=== PATIENT | female | born 1990 | race American Indian/Alaskan Native ===

== ENCOUNTER 2020-03-01 11:14 | Emergency (ER) | payer SELFPAY ==
[2020-03-01] MEDS ORDERED: ONDANSETRON 4 MG/2 ML INJ IV ONE (12:46)
[2020-03-01] MEDS ORDERED: BUTORPHANOL 2 MG/1 ML INJ IV ONE (13:00)
[2020-03-01 13:24] LABS: Basophils % (Auto) 0.1 % (0.0-1.8); Eosinophils # (Auto) 0.1 K/mm3 (0.0-0.4); Eosinophils % (Auto) 0.9 % (0.0-4.3); Hematocrit 38.9 % (30.3-42.9); Hemoglobin 13.8 gm/dl (10.1-14.3); Lymphocytes # (Auto) 1.9 K/mm3 (1.2-5.4); Lymphocytes % (Auto) 18.9 % (13.4-35.0); Mean Corpuscular HGB Conc 35 % (30-34); Mean Corpuscular Volume 89 fl (79-97); Monocytes # (Auto) 1.2 K/mm3 (0.0-0.8); Monocytes % (Auto) 12.1 % (0.0-7.3); Platelet Count 208 K/mm3 (140-440); Red Blood Count 4.35 M/mm3 (3.65-5.03); Red Cell Distribution Width 12.8 % (13.2-15.2)
[2020-03-01 13:34] LABS: Partial Thromboplastin Time 30.3 Sec. (24.2-36.6)
[2020-03-01 13:55] LABS: Alanine Aminotransferase 11 units/L (7-56); Albumin 3.8 g/dL (3.9-5); BUN/Creatinine Ratio 12; Blood Urea Nitrogen 6 mg/dL (7-17); Calcium 9.2 mg/dL (8.4-10.2); Hemolysis Index 8
--- NOTE | 2020-03-01 15:16 | Emergency Department Report ---
ED General Adult HPI - General Chief complaint: Abdominal Pain Stated complaint: ABD PAIN Time Seen by Provider: 03/01/20 11:52 Source: EMS Mode of arrival: Wheelchair Limitations: No Limitations - History of Present Illness Initial comments: The patient presents to the emergency department with a chief complaint of pelvic pain and cramping. Patient states she is approximately 4 months and began to have abdominal pain and cramping this morning. She states the pain feels like labor pains. The patient is a G4, P3. Patient has any vaginal discharge but does endorse some spotting. -: Sudden Location: pelvis Radiation: non-radiation Severity scale (0 -10): 10 Quality: sharp, other (Sharp and crampy) Consistency: constant Improves with: none Worsens with: none Associated Symptoms: denies other symptoms Treatments Prior to Arrival: none - Related Data Previous Rx's Medication Instructions Recorded Last Taken Type Metoclopramide [Reglan] 10 mg PO Q8HR PRN #12 tab 12/05/19 Unknown Rx Acetaminophen/Codeine [Tylenol 1 tab PO Q6H PRN #15 tab 03/01/20 Unknown Rx /Codeine # 3 tab] Allergies Allergy/AdvReac Type Severity Reaction Status Date / Time strawberry Allergy Rash Verified 12/05/19 09:51 ED Review of Systems ROS: Stated complaint: ABD PAIN Other details as noted in HPI Comment: All other systems reviewed and negative Constitutional: denies: chills, fever Eyes: denies: eye pain, eye discharge, vision change ENT: denies: ear pain, throat pain Respiratory: denies: cough, shortness of breath, wheezing Cardiovascular: denies: chest pain, palpitations Endocrine: no symptoms reported Gastrointestinal: abdominal pain. denies: nausea, diarrhea Genitourinary: denies: urgency, dysuria, discharge Musculoskeletal: denies: back pain, joint swelling, arthralgia Skin: denies: rash, lesions Neurological: denies: headache, weakness, paresthesias Psychiatric: denies: anxiety, depression Hematological/Lymphatic: denies: easy bleeding, easy bruising ED Past Medical Hx - Past Medical History Previous Medical History?: Yes Hx Hypertension: Yes - Surgical History Past Surgical History?: No - Social History Smoking Status: Current Every Day Smoker Substance Use Type: None - Medications Home Medications: Home Medications Medication Instructions Recorded Confirmed Last Taken Type Metoclopramide [Reglan] 10 mg PO Q8HR PRN #12 tab 12/05/19 Unknown Rx Acetaminophen/Codeine [Tylenol 1 tab PO Q6H PRN #15 tab 03/01/20 Unknown Rx /Codeine # 3 tab] ED Physical Exam - General Limitations: No Limitations General appearance: alert, in no apparent distress - Head Head exam: Present: atraumatic, normocephalic - Eye Eye exam: Present: normal appearance, PERRL, EOMI - ENT ENT exam: Present: mucous membranes moist - Neck Neck exam: Present: normal inspection - Respiratory Respiratory exam: Present: normal lung sounds bilaterally. Absent: respiratory distress - Cardiovascular Cardiovascular Exam: Present: regular rate, normal rhythm. Absent: systolic murmur, diastolic murmur, rubs, gallop - GI/Abdominal GI/Abdominal exam: Present: soft, normal bowel sounds. Absent: distended, tenderness - External exam: Present: normal external exam Speculum exam: Present: normal speculum exam, other (os closed) Bi-manual exam: Present: normal bi-manual exam - Extremities Exam Extremities exam: Present: normal inspection - Back Exam Back exam: Present: normal inspection - Neurological Exam Neurological exam: Present: alert, oriented X3, CN II-XII intact. Absent: motor sensory deficit - Psychiatric Psychiatric exam: Present: normal affect, normal mood - Skin Skin exam: Present: warm, dry, intact, normal color. Absent: rash ED Course Vital Signs 03/01/20 03/01/20 11:35 14:30 Temperature 97.7 F Pulse Rate 90 Respiratory 18 17 Rate Blood Pressure 120/69 O2 Sat by Pulse 97 100 Oximetry ED Medical Decision Making - Lab Data Result diagrams: 03/01/20 12:54 03/01/20 12:54 Lab Results 03/01/20 03/01/20 03/01/20 Range/Units 12:54 12:54 12:54 WBC 10.1 (4.5-11.0) K/mm3 RBC 4.35 (3.65-5.03) M/mm3 Hgb 13.8 (10.1-14.3) gm/dl Hct 38.9 (30.3-42.9) % MCV 89 (79-97) fl MCH 32 (28-32) pg MCHC 35 H (30-34) % RDW 12.8 L (13.2-15.2) % Plt Count 208 (140-440) K/mm3 Lymph % (Auto) 18.9 (13.4-35.0) % [place] % (Auto) 12.1 H (0.0-7.3) % Eos % (Auto) 0.9 (0.0-4.3) % Baso % (Auto) 0.1 (0.0-1.8) % Lymph # (Auto) 1.9 (1.2-5.4) K/mm3 [place] # (Auto) 1.2 H (0.0-0.8) K/mm3 Eos # (Auto) 0.1 (0.0-0.4) K/mm3 Baso # (Auto) 0.0 (0.0-0.1) K/mm3 Seg Neutrophils % 68.0 (40.0-70.0) % Seg Neutrophils # 6.8 (1.8-7.7) K/mm3 PT (12.2-14.9) Sec. INR (0.87-1.13) APTT (24.2-36.6) Sec. Sodium 137 (137-145) mmol/L Potassium 3.9 (3.6-5.0) mmol/L Chloride 103.2 (98-107) mmol/L Carbon Dioxide 20 L (22-30) mmol/L Anion Gap 18 mmol/L BUN 6 L (7-17) mg/dL Creatinine 0.5 L (0.6-1.2) mg/dL Estimated GFR > 60 ml/min BUN/Creatinine Ratio 12 % Glucose 78 (65-100) mg/dL Calcium 9.2 (8.4-10.2) mg/dL Total Bilirubin 0.40 (0.1-1.2) mg/dL AST 14 (5-40) units/L ALT 11 (7-56) units/L Alkaline Phosphatase 74 (35-129) units/L Total Protein 6.9 (6.3-8.2) g/dL Albumin 3.8 L (3.9-5) g/dL Albumin/Globulin Ratio 1.2 % HCG, Quant 6978 H (0-4) mIU/mL Urine Color (Yellow) Urine Turbidity (Clear) Urine pH (5.0-7.0) Ur Specific [place] (1.003-1.030) Urine Protein (Negative) mg/dL Urine Glucose (UA) (Negative) mg/dL Urine Ketones (Negative) mg/dL Urine Blood (Negative) Urine Nitrite (Negative) Urine Bilirubin (Negative) Urine Urobilinogen (<2.0) mg/dL Ur Leukocyte Esterase (Negative) Urine WBC (Auto) (0.0-6.0) /HPF Urine RBC (Auto) (0.0-6.0) /HPF U Epithel Cells (Auto) (0-13.0) /HPF Urine Mucus /HPF 03/01/20 03/01/20 Range/Units 12:54 Unknown WBC (4.5-11.0) K/mm3 RBC (3.65-5.03) M/mm3 Hgb (10.1-14.3) gm/dl Hct (30.3-42.9) % MCV (79-97) fl MCH (28-32) pg MCHC (30-34) % RDW (13.2-15.2) % Plt Count (140-440) K/mm3 Lymph % (Auto) (13.4-35.0) % [place] % (Auto) (0.0-7.3) % Eos % (Auto) (0.0-4.3) % Baso % (Auto) (0.0-1.8) % Lymph # (Auto) (1.2-5.4) K/mm3 [place] # (Auto) (0.0-0.8) K/mm3 Eos # (Auto) (0.0-0.4) K/mm3 Baso # (Auto) (0.0-0.1) K/mm3 Seg Neutrophils % (40.0-70.0) % Seg Neutrophils # (1.8-7.7) K/mm3 PT 13.4 (12.2-14.9) Sec. INR 1.00 (0.87-1.13) APTT 30.3 (24.2-36.6) Sec. Sodium (137-145) mmol/L Potassium (3.6-5.0) mmol/L Chloride (98-107) mmol/L Carbon Dioxide (22-30) mmol/L Anion Gap mmol/L BUN (7-17) mg/dL Creatinine (0.6-1.2) mg/dL Estimated GFR ml/min BUN/Creatinine Ratio % Glucose (65-100) mg/dL Calcium (8.4-10.2) mg/dL Total Bilirubin (0.1-1.2) mg/dL AST (5-40) units/L ALT (7-56) units/L Alkaline Phosphatase (35-129) units/L Total Protein (6.3-8.2) g/dL Albumin (3.9-5) g/dL Albumin/Globulin Ratio % HCG, Quant (0-4) mIU/mL Urine Color Yellow (Yellow) Urine Turbidity Slightly-cloudy (Clear) Urine pH 6.0 (5.0-7.0) Ur Specific [place] 1.014 (1.003-1.030) Urine Protein <15 mg/dl (Negative) mg/dL Urine Glucose (UA) Neg (Negative) mg/dL Urine Ketones 20 (Negative) mg/dL Urine Blood Neg (Negative) Urine Nitrite Neg (Negative) Urine Bilirubin Neg (Negative) Urine Urobilinogen 2.0 (<2.0) mg/dL Ur Leukocyte Esterase Tr (Negative) Urine WBC (Auto) 2.0 (0.0-6.0) /HPF Urine RBC (Auto) 1.0 (0.0-6.0) /HPF U Epithel Cells (Auto) 11.0 (0-13.0) /HPF Urine Mucus Few /HPF - Radiology Data Radiology results: report reviewed - Medical Decision Making Patient given 1 mg of Stadol for pain with significant relief of pain Laboratory values, microbiology, imaging reviewed Discussed results with patient Critical care attestation.: If time is entered above; I have spent that time in minutes in the direct care of this critically ill patient, excluding procedure time. ED Disposition Clinical Impression: Pelvic pain during Disposition: DC- TO HOME OR SELFCARE Is pt being admited?: No Does the pt Need Aspirin: No Condition: Stable Instructions: Abdominal Pain in (ED) Additional Instructions: return if worse or vaginal bleeding Prescriptions: Acetaminophen/Codeine [Tylenol /Codeine # 3 tab] 1 tab PO Q6H PRN #15 tab PRN Reason: pain Referrals: ROBERT RAE JR, MD [Staff Physician] - 3-5 Days PRIMARY CARE, [Primary Care Provider] - 3-5 Days Time of Disposition: 19:11
--- NOTE | 2020-03-01 18:00 | Ultrasound Report ---
LIMITED OBSTETRICAL ULTRASOUND HISTORY: Abdominal cramping. Spotting. FINDINGS: Limited obstetrical ultrasound was performed. A single viable intrauterine is marcia ed 19 weeks 0 days. heart tones are 128 bpm. Estimated weight is 272 g. Placenta is anteriorly located, position is cephalic. The cervix measures 4.3 cm and is closed. IMPRESSION: Viable intrauterine dated 19 weeks 0 days. Signer Name: Juancho Salas MD Signed: 03/01/2020 5:56 PM Workstation Name: [id number]
[2020-03-01 18:50] LABS: Bilirubin,Urine NEG (Negative); Blood,Urine NEG (Negative); Color,Urine Yellow (Yellow); Mucus,Urine FEW /HPF; Protein,Urine <15 mg/dL mg/dL (Negative)
[2020-03-01 19:20] VITALS: BP 150/80
== END 2020-03-01 19:21 | disposition home or self-care (01) ==
LOC: ED 11:14
DX: O26.892 Other specified pregnancy related conditions, second trimester (principal); R10.2 Pelvic and perineal pain; R25.2 Cramp and spasm; Z3A.19 19 weeks gestation of pregnancy
CPT/HCPCS: 36415; 76805; 80053; 81001; 84702; 85025; 85610; 85730; 87210; 87591; 96374; 96375; 99285; J0595; J2405

== ENCOUNTER 2020-06-26 14:08 | Outpatient (CLI) | payer OTHER ==
[2020-06-26] MEDS ORDERED: LACTATED RINGERS 1,000 ML ONE (15:05)
[2020-06-26] MEDS ORDERED: LACTATED RINGERS 1,000 ML IV ONE (15:06)
[2020-06-26 16:57] VITALS: BP 126/78
== END 2020-06-26 17:25 | disposition home or self-care (01) ==
LOC: TRG 14:08 → APU 14:10 → TRG 17:25
PROVIDERS: ATTEND Obstetrics & Gynecology
DX: O62.9 Abnormality of forces of labor, unspecified (principal); O13.3 Gestational [pregnancy-induced] hypertension without significant proteinuria, third trimester; Z3A.35 35 weeks gestation of pregnancy; Z87.891 Personal history of nicotine dependence
CPT/HCPCS: 59025; 96360; J7120

== ENCOUNTER 2020-07-19 11:14 | Emergency (ER) | payer OTHER ==
--- NOTE | 2020-07-19 11:27 | Emergency Department Report ---
Blank Doc - Documentation Documentation: 29-year-old female that is postop vaginal delivery 5 days ago presents with pe lvic pain and vaginal bleeding. 1- This initial assessment/diagnostic orders/clinical plan/ treatment(s) is/are subject to change based on pt's health status, clinical progression and re- assessment by fellow clinical providers in the ED. Further treatment and workup at subsequent clinical provers discretion. Patient/guardians urged not to elope from ED as their condition may be serious if not clinically assessed and managed. 2-labs 3-UA 4-pelvic US
[2020-07-19 11:49] VITALS: BP 132/77
--- NOTE | 2020-07-19 13:02 | Ultrasound Report ---
ULTRASOUND PELVIS INDICATION / CLINICAL INFORMATION: vaginal bleeding and pelvic pain. Patient is recent , delivering on 07/08/2020 TECHNIQUE: Transabdominal. Duplex Color Doppler used: Yes. COMPARISON: Obstetric ultrasound 03/01/2020 FINDINGS: UTERUS: Present. - Appearance (if present): No significant abnormality. - Size in cm (if present): 16.2 x 6.3 x 12.6. - Endometrial Complex (if present): Thickness in cm (if measured) = 1.7. There is complex fluid in th e endometrial cavity of the lower uterine segment measuring up to 1.7 cm in thickness. No internal va scularity is demonstrated. - Mass lesions: None. - Additional findings: None. RIGHT ADNEXA: No significant ovarian cyst or mass. Normal color Doppler blood flow. LEFT ADNEXA: No significant ovarian cyst or mass. Normal color Doppler blood flow. URINARY BLADDER: No significant abnormality. FREE FLUID: None. ADDITIONAL FINDINGS: None. IMPRESSION: 1. Enlarged uterus compatible with recent state. Complex fluid within the endometrial cavi ty of the lower uterine segment most likely reflects blood clot, though retained products of concepti on are difficult to exclude sonographically, and clinical correlation is recommended. Signer Name: Shannan Trevino MD Signed: 07/19/2020 12:58 PM Workstation Name: [id number]
[2020-07-19 13:52] LABS: Basophils % (Auto) 0.6 % (0.0-1.8); Eosinophils # (Auto) 0.1 K/mm3 (0.0-0.4); Eosinophils % (Auto) 1.8 % (0.0-4.3); Hemoglobin 13.7 gm/dl (10.1-14.3); Lymphocytes # (Auto) 1.6 K/mm3 (1.2-5.4); Lymphocytes % (Auto) 27.3 % (13.4-35.0); Mean Corpuscular HGB Conc 34 % (30-34); Mean Corpuscular Volume 89 fl (79-97); Monocytes # (Auto) 0.5 K/mm3 (0.0-0.8); Monocytes % (Auto) 8.7 % (0.0-7.3); Platelet Count 235 K/mm3 (140-440); Red Blood Count 4.51 M/mm3 (3.65-5.03)
[2020-07-19 14:02] LABS: INR 0.95 (0.87-1.13)
[2020-07-19 14:03] LABS: Partial Thromboplastin Time 31.2 Sec. (24.2-36.6)
[2020-07-19 14:10] LABS: Alanine Aminotransferase 14 units/L (7-56); Albumin 3.6 g/dL (3.9-5); BUN/Creatinine Ratio 20; Blood Urea Nitrogen 14 mg/dL (7-17); Hemolysis Index 7
== END 2020-07-19 16:00 | disposition left against medical advice (07) ==
LOC: ED 11:14
DX: O72.1 Other immediate postpartum hemorrhage (principal); O90.89 Other complications of the puerperium, not elsewhere classified; R10.2 Pelvic and perineal pain; Z53.21 Procedure and treatment not carried out due to patient leaving prior to being seen by health care provider
CPT/HCPCS: 36415; 80053; 85025; 85610; 85730; 93975

== ENCOUNTER 2021-06-07 13:07 | Emergency (ER) | payer OTHER ==
[2021-06-07] MEDS ORDERED: SODIUM CHLORIDE 0.9% 1000 ML 1,000 ML IV ONE (13:33)
[2021-06-07] MEDS ORDERED: MORPHINE 4 MG/1 ML INJ IV ONE (13:33)
--- NOTE | 2021-06-07 13:37 | Emergency Department Report ---
HPI - HPI HPI: 30-year-old -[place] female presents to the emergency department via EMS from home with complaint of mid to low back pain. Overall this has been going on for the past week but greatly worsened today when she was leaning over to pick something up. Suddenly she had increased pain and "I got stuck in that position." She describes the pain currently as 9 out of 10 in intensity and it radiates around towards her abdomen and feels like a squeezing sensation. She denies any problems with bowel or bladder, numbness or paresthesias, or any neurological deficits. She otherwise denies any trauma, injury, or known inciting event. She has a past medical history of hypertension. Over the past few days she has taken a few doses of ibuprofen without any relief. <FIDEL GARZA - Last Filed: 06/07/21 15:51> <DIAZ AYOUB - Last Filed: 06/07/21 18:53> - General Chief Complaint: Back Pain/Injury Time Seen by Provider: 06/07/21 13:24 ED Past Medical Hx - Past Medical History Hx Hypertension: Yes Hx Diabetes: No Hx Deep Vein Thrombosis: No Hx Renal Disease: No Hx Sickle Cell Disease: Yes (Trait) Hx Seizures: No Hx Asthma: No Hx HIV: No - Social History Smoking Status: Former Smoker <FIDEL GARZA - Last Filed: 06/07/21 15:51> <DIAZ AYOUB - Last Filed: 06/07/21 18:53> - Medications Home Medications: Home Medications Medication Instructions Recorded Confirmed Last Taken Type Aspirin 1 tab PO DAILY 06/26/20 06/07/21 Unknown History Cyclobenzaprine [Flexeril] 10 mg PO TID PRN #12 06/07/21 Unknown Rx ED Review of Systems ROS: Stated complaint: BACK PAIN Other details as noted in HPI Comment: All other systems reviewed and negative Constitutional: denies: chills, fever Eyes: denies: eye pain, vision change ENT: denies: ear pain, throat pain Respiratory: denies: cough, shortness of breath Cardiovascular: denies: chest pain, palpitations Gastrointestinal: denies: abdominal pain, vomiting Genitourinary: denies: dysuria, discharge Musculoskeletal: back pain. denies: arthralgia Skin: denies: rash, lesions Neurological: denies: headache, weakness, numbness, paresthesias <FIDEL GARZA S - Last Filed: 06/07/21 15:51> ROS: Stated complaint: BACK PAIN Other details as noted in HPI <ANITRADIAZ - Last Filed: 06/07/21 18:53> Physical Exam - Physical Exam Vital Signs: Vital Signs 06/07/21 13:12 Temperature 98 F Pulse Rate 104 H Respiratory 16 Rate Blood Pressure 136/72 [Right] O2 Sat by Pulse 99 Oximetry Physical Exam: GENERAL: The patient is well-developed well-nourished. HENT: Normocephalic. Atraumatic. Patient has moist mucous membranes. EYES: Extraocular motions are intact. NECK: Supple. Trachea is midline. CHEST/LUNGS: Clear to auscultation. There is no respiratory distress noted. HEART/CARDIOVASCULAR: Regular. There is no tachycardia. There is no murmur. ABDOMEN: Abdomen is soft, nontender. Patient has normal bowel sounds. Morbidly obese habitus. SKIN: Skin is warm and dry. NEURO: The patient is awake, alert, and oriented. The patient is cooperative. The patient has no focal neurologic deficits. Normal speech. MUSCULOSKELETAL: There is no tenderness or deformity. There is no limitation range of motion. BACK: There is both midline and bilateral paraspinal lower thoracic and lumbar tenderness to palpation. <FIDEL GARZA S - Last Filed: 06/07/21 15:51> - Physical Exam Vital Signs: Vital Signs 06/07/21 13:12 Temperature 98 F Pulse Rate 104 H Respiratory 16 Rate Blood Pressure 136/72 [Right] O2 Sat by Pulse 99 Oximetry <DIAZ AYOUB - Last Filed: 06/07/21 18:53> ED Course Vital Signs 06/07/21 13:12 Temperature 98 F Pulse Rate 104 H Respiratory 16 Rate Blood Pressure 136/72 [Right] O2 Sat by Pulse 99 Oximetry <FIDEL GARZA S - Last Filed: 06/07/21 15:51> Vital Signs 06/07/21 13:12 Temperature 98 F Pulse Rate 104 H Respiratory 16 Rate Blood Pressure 136/72 [Right] O2 Sat by Pulse 99 Oximetry - Reevaluation(s) Reevaluation #1: 06/07/21 18:51 On repeat assessment at 6:50 PM, the patient reports that her pain is much improved but still is present and occasionally with spasming. She is able to walk to the bathroom without assistance although she walks slowly to avoid causing spasm. Plain film x-rays of the lumbar and thoracic spine reveal no acute abnormalities. Urinalysis reveals large leuk esterase but appears to be a dirty sample because there are greater than 30 squamous epithelial cells and without elevated WBCs or RBCs. I discussed with her the medication prescribed and the fact that it may cause drowsiness. She will follow up with an orthopedic surgeon. Return precautions were explained. The patient expressed understanding and agreement with the plan of care. <DIAZ AYOUB - Last Filed: 06/07/21 18:53> ED Medical Decision Making - Lab Data Result diagrams: 06/07/21 14:34 06/07/21 14:34 - Medical Decision Making This patient presents to the emergency department with a 1 week history of mid to low back pain that worsened greatly today when she leaned over to grab something. The patient comes in with what appears to be back spasms. She denies any problems with bowel or bladder, numbness or paresthesias or any neurological deficits. Patient was given some IV fluid resuscitation and a dose of IV analgesia. She appeared to have a slight cutaneous reaction to the morphine given and was then given Solu-Medrol and Benadryl. The Benadryl has been a little sedating but the patient has been seen laying supine and resting comfortably, which he was not able to do previously. Patient will have an x-ray of her lumbar and thoracic spine. I am waiting for a urine sample for urinalysis. These will be signed out to my colleague, Dr. Ayoub, as well as to make sure the patient can ambulate. I have set the patient up for outpatient follow-up with an orthopedist and prescribed for muscle relaxers. <FIDEL GARZA - Last Filed: 06/07/21 15:51> - Lab Data Result diagrams: 06/07/21 14:34 06/07/21 14:34 <DIAZ AYOUB - Last Filed: 06/07/21 18:53> Critical care attestation.: If time is entered above; I have spent that time in minutes in the direct care of this critically ill patient, excluding procedure time. <FIDEL GARZA - Last Filed: 06/07/21 15:51> Critical care attestation.: If time is entered above; I have spent that time in minutes in the direct care of this critically ill patient, excluding procedure time. <DIAZ AYOUB - Last Filed: 06/07/21 18:53> ED Disposition Is pt being admited?: No Time of Disposition: 15:28 <FIDEL GARZA - Last Filed: 06/07/21 15:51> Is pt being admited?: No <DIAZ AYOUB - Last Filed: 06/07/21 18:53> Clinical Impression: Back pain, Lumbar strain, Elevated liver enzymes Disposition: HOME / SELF CARE / HOMELESS Condition: Stable Instructions: Acute Back Pain, Adult Additional Instructions: Please follow up with your primary care physician in the next few days. I am giving you a referral for a local orthopedist, Dr Ocampo, to follow up regarding your back pain. Your labs today show that one of your liver enzymes is elevated. For this reason, please avoid any alcohol or Tylenol/acetaminophen use. I have also given you a referral for [facility] to follow-up regarding this lab abnormality. You have been prescribed a medication that is sedating and therefore should not be taken prior to driving, working, and responsible for children and in no way should be mixed with alcohol of any quantity. Return to the emergency department with any worsening of your symptoms, new or concerning symptoms not addressed during this current emergency department visit, or with any acute distress. Prescriptions: Cyclobenzaprine [Flexeril] 10 mg PO TID PRN #12 PRN Reason: Muscle Spasm Referrals: ROSIE OCAMPO MD [Staff Physician] - 3-5 Days [facility] [Provider Group] - 3-5 Days
[2021-06-07] MEDS ORDERED: methylPREDNISolone Sod Succinate 125 MG/2 ML INJ IM ONE (14:27)
[2021-06-07] MEDS ORDERED: diphenhydrAMINE 50 MG/ML VIAL IV ONE (14:28)
[2021-06-07 14:58] LABS: Basophils % (Auto) 0.5 % (0.0-1.8); Eosinophils # (Auto) 0.1 K/mm3 (0.0-0.4); Eosinophils % (Auto) 1.1 % (0.0-4.3); Hematocrit 45.6 % (30.3-42.9); Lymphocytes % (Auto) 23.6 % (13.4-35.0); Mean Corpuscular HGB Conc 33 % (30-34); Mean Corpuscular Volume 88 fl (79-97); Monocytes # (Auto) 0.7 K/mm3 (0.0-0.8); Platelet Count 300 K/mm3 (140-440); Red Blood Count 5.21 M/mm3 (3.65-5.03); Red Cell Distribution Width 13.2 % (13.2-15.2)
[2021-06-07 15:10] LABS: Alanine Aminotransferase 57 units/L (7-56); Albumin 4.5 g/dL (3.9-5); Blood Urea Nitrogen 12 mg/dL (7-17); Hemolysis Index 42
[2021-06-07 15:16] LABS: BUN/Creatinine Ratio 20
--- NOTE | 2021-06-07 16:52 | XRay Report ---
THORACIC SPINE 3 VIEWS INDICATION / CLINICAL INFORMATION: back pain. COMPARISON: None available. FINDINGS: VERTEBRAE: No acute fracture. No significant malalignment. DISC SPACES / FACET JOINTS:Mild scattered spondylosis. PARASPINAL SOFT TISSUES:No significant abnormality. ADDITIONAL FINDINGS: None. Signer Name: Remigio Sprague DO Signed: 06/07/2021 4:48 PM Workstation Name: [id number]
--- NOTE | 2021-06-07 16:52 | XRay Report ---
LUMBAR SPINE 3 VIEWS INDICATION / CLINICAL INFORMATION: back pain. COMPARISON: None available. FINDINGS: VERTEBRAE: No acute fracture. No significant malalignment. DISC SPACES / FACET JOINTS:No significant abnormality. PARASPINAL SOFT TISSUES:No significant abnormality. ADDITIONAL FINDINGS: None. Signer Name: Remigio Sprague DO Signed: 06/07/2021 4:48 PM Workstation Name: [id number]
[2021-06-07] MEDS ORDERED: KETOROLAC 30 MG/1 ML INJ IV ONE (18:22)
[2021-06-07 18:36] LABS: RBC,Urine < 1.0 /HPF (0.0-6.0)
[2021-06-07 18:41] LABS: Bacteria,Urine 2+ /HPF (Negative); Bilirubin,Urine NEG (Negative); Blood,Urine NEG (Negative); Color,Urine Yellow (Yellow); Mucus,Urine 1+ /HPF; Protein,Urine <15 mg/dL mg/dL (Negative); Urobilinogen,Urine < 2.0 mg/dL (<2.0)
[2021-06-07 19:21] VITALS: BP 122/87
== END 2021-06-07 19:21 | disposition home or self-care (01) ==
LOC: ED 13:07
DX: S39.012A Strain of muscle, fascia and tendon of lower back, initial encounter (principal); M54.9 Dorsalgia, unspecified; R74.01 Elevation of levels of liver transaminase levels; D57.3 Sickle-cell trait; I10 Essential (primary) hypertension; Z87.891 Personal history of nicotine dependence; X50.1XXA Overexertion from prolonged static or awkward postures, initial encounter; Y93.89 Activity, other specified; Y92.89 Other specified places as the place of occurrence of the external cause; Y99.8 Other external cause status
CPT/HCPCS: 36415; 72072; 72100; 80053; 81001; 84703; 85025; 96361; 96372; 96374; 96375; 99284; J1200; J1885; J2270; J2930; J7030; Q0162

== ENCOUNTER 2021-08-08 03:48 | Emergency (ER) | payer OTHER ==
[2021-08-08] MEDS ORDERED: KETOROLAC 30 MG/1 ML INJ IV ONE (04:55)
--- NOTE | 2021-08-08 05:12 | XRay Report ---
CHEST 2 VIEWS INDICATION / CLINICAL INFORMATION: chestpain. COMPARISON: Chest x-ray 12/05/2019 FINDINGS: SUPPORT DEVICES: None. HEART / MEDIASTINUM: No significant abnormality. LUNGS / PLEURA: No significant pulmonary or pleural abnormality. No pneumothorax. ADDITIONAL FINDINGS: No significant additional findings. IMPRESSION: 1. No active cardiopulmonary disease. Signer Name: David Zarate II, MD Signed: 08/08/2021 5:08 AM Workstation Name: [id number]
[2021-08-08 05:50] LABS: INR 0.92 (0.87-1.13)
[2021-08-08 05:51] LABS: Basophils # (Auto) 0.1 K/mm3 (0.0-0.1); Basophils % (Auto) 0.6 % (0.0-1.8); Eosinophils # (Auto) 0.1 K/mm3 (0.0-0.4); Eosinophils % (Auto) 1.2 % (0.0-4.3); Hematocrit 40.9 % (30.3-42.9); Hemoglobin 13.8 gm/dl (10.1-14.3); Lymphocytes % (Auto) 21.1 % (13.4-35.0); Mean Corpuscular HGB Conc 34 % (30-34); Mean Corpuscular Volume 89 fl (79-97); Monocytes % (Auto) 9.9 % (0.0-7.3); Platelet Count 251 K/mm3 (140-440); Red Cell Distribution Width 13.2 % (13.2-15.2)
--- NOTE | 2021-08-08 05:57 | Emergency Department Report ---
ED Chest Pain HPI - General Chief Complaint: Chest Pain Stated Complaint: CHEST PAIN Time Seen by Provider: 08/08/21 04:17 Source: patient Mode of arrival: Stretcher Limitations: No Limitations - History of Present Illness Initial Comments: Patient is a 30-year-old female presented emergency department plaint of chest pain. Patient states that she has chest pain that radiates to her back. Pain is sharp. Patient states pain is severe. She denies any shortness of breath at this time. The pain has been present for the last 1 to 2 days. MD Complaint: chest pain Severity scale (0 -10): 5 - Related Data Home Medications Medication Instructions Recorded Confirmed Last Taken Aspirin 1 tab PO DAILY 06/26/20 06/07/21 Unknown Previous Rx's Medication Instructions Recorded Last Taken Type Cyclobenzaprine [Flexeril] 10 mg PO TID PRN #12 06/07/21 Unknown Rx Allergies Allergy/AdvReac Type Severity Reaction Status Date / Time morphine Allergy Hives Verified 06/07/21 14:47 strawberry Allergy Rash Verified 06/07/21 15:05 Heart Score - HEART Score History: Slightly suspicious EKG: Normal Age: < 45 Risk factors: 1-2 risk factors Troponin: < normal limit HEART Score: 1 - EKG Read Time Time EKG Completed: 04:28 EKG Read Time: 04:30 ED Review of Systems ROS: Stated complaint: CHEST PAIN Other details as noted in HPI Constitutional: denies: chills, fever Eyes: denies: eye pain, eye discharge, vision change ENT: denies: ear pain, throat pain Respiratory: denies: cough, shortness of breath, wheezing Cardiovascular: chest pain. denies: palpitations Endocrine: no symptoms reported Gastrointestinal: denies: abdominal pain, nausea, diarrhea Genitourinary: denies: urgency, dysuria, discharge Musculoskeletal: back pain. denies: joint swelling, arthralgia Skin: denies: rash, lesions Neurological: denies: headache, weakness, paresthesias Psychiatric: denies: anxiety, depression Hematological/Lymphatic: denies: easy bleeding, easy bruising ED Past Medical Hx - Past Medical History Previous Medical History?: Yes Hx Hypertension: Yes Hx Diabetes: No Hx Deep Vein Thrombosis: No Hx Renal Disease: No Hx Sickle Cell Disease: Yes (Trait) Hx Seizures: No Hx Asthma: No Hx HIV: No Additional medical history: morbid obesity - Surgical History Past Surgical History?: No - Social History Smoking Status: Current Every Day Smoker Substance Use Type: None - Medications Home Medications: Home Medications Medication Instructions Recorded Confirmed Last Taken Type Aspirin 1 tab PO DAILY 06/26/20 06/07/21 Unknown History Cyclobenzaprine [Flexeril] 10 mg PO TID PRN #12 06/07/21 Unknown Rx ED Physical Exam - General Limitations: No Limitations General appearance: alert, in distress (Secondary to pain) - Head Head exam: Present: atraumatic, normocephalic - Eye Eye exam: Present: normal appearance - ENT ENT exam: Present: mucous membranes moist - Neck Neck exam: Present: normal inspection - Respiratory Respiratory exam: Present: normal lung sounds bilaterally. Absent: respiratory distress - Cardiovascular Cardiovascular Exam: Present: regular rate, normal rhythm. Absent: systolic murmur, diastolic murmur, rubs, gallop - GI/Abdominal GI/Abdominal exam: Present: soft, normal bowel sounds - Rectal Rectal exam: Present: deferred - Extremities Exam Extremities exam: Present: normal inspection - Back Exam Back exam: Present: normal inspection - Neurological Exam Neurological exam: Present: alert, oriented X3 - Psychiatric Psychiatric exam: Present: normal affect, normal mood - Skin Skin exam: Present: warm, dry, intact, normal color. Absent: rash ED Course Vital Signs 08/08/21 08/08/21 08/08/21 04:18 04:34 08:28 Temperature 98 F Pulse Rate 86 Respiratory 20 Rate Blood Pressure 140/80 144/93 O2 Sat by Pulse 100 100 97 Oximetry 08/08/21 08/08/21 08/08/21 08:30 08:46 09:00 Temperature Pulse Rate Respiratory Rate Blood Pressure 144/93 151/90 131/78 O2 Sat by Pulse 100 99 98 Oximetry 08/08/21 08/08/21 08/08/21 09:16 09:21 09:30 Temperature Pulse Rate Respiratory Rate Blood Pressure 133/85 143/81 O2 Sat by Pulse 98 100 100 Oximetry ED Medical Decision Making - Lab Data Result diagrams: 08/08/21 05:16 08/08/21 05:16 - EKG Data -: EKG Interpreted by Vt EKG shows normal: sinus rhythm Rate: normal - EKG Data When compared to previous EKG there are: previous EKG unavailable - Radiology Data Radiology results: report reviewed, image reviewed - Medical Decision Making 30-year-old female presents emergency department complaint of chest pain. Differential includes ACS, pulmonary embolism, aortic dissection. Patient does appear uncomfortable and her chest pain is radiating to her back. Given this I have ordered chest x-ray, serial troponins, serial EKGs, basic labs and CTA chest. Will start to give pain control and reassess. Her heart score is 1 so if CTA is negative and troponins negative patient likely to be discharge home with close follow-up with primary care. Critical care attestation.: If time is entered above; I have spent that time in minutes in the direct care of this critically ill patient, excluding procedure time. ED Disposition Clinical Impression: Chest pain Disposition: 01 HOME / SELF CARE / HOMELESS Is pt being admited?: No Does the pt Need Aspirin: No Condition: Stable Instructions: Nonspecific Chest Pain, Adult Additional Instructions: Return to the emergency department should you develop worsening symptoms, inability to tolerate food or liquids, high fever or any other concerns Referrals: ELVIN IVEY MD [Primary Care Provider] - 3-5 Days
[2021-08-08 06:02] LABS: Alanine Aminotransferase 24 units/L (7-56); Blood Urea Nitrogen 15 mg/dL (7-17); Calcium 9.1 mg/dL (8.4-10.2); Hemolysis Index 11
[2021-08-08 06:05] LABS: BUN/Creatinine Ratio 25
[2021-08-08] MEDS ORDERED: SODIUM CHLORIDE 0.9% 1000 ML 1,000 ML IV ONE (06:07)
--- NOTE | 2021-08-08 08:02 | Cat Scan Report ---
CTA CHEST WITH CONTRAST INDICATION : chest pain radiating to the back; patient uncomfor. TECHNIQUE: Axial imaging performed through the chest, with contrast bolus timing set to maximize opa cification of the pulmonary arteries. Sagittal and coronal reformatted images. 3-plane MIP reformatte d images were obtained. All CT scans at this location are performed using CT dose reduction for ALAR A by means of automated exposure control. Omnipaque 350 85 mL of intravenous contrast administered. COMPARISON: 09/26/2016 FINDINGS: Bolus: Contrast bolus timing is adequate. PTE: No filling defect is present to suggest PTE. Mediastinum: Heart and great vessels appear normal. No pathologic mediastinal adenopathy. Lungs: The lungs are clear with no evidence for pneumonia, pleural effusion or pneumothorax. Bones: Degenerative changes in the spine with nothing acute. Upper abdomen: Limited imaging of the upper abdomen shows nothing acute. IMPRESSION: Negative for PTE. Clear lungs. Signer Name: Fredi Donald Jr, MD Signed: 08/08/2021 7:58 AM Workstation Name: [id number]
[2021-08-08 10:26] VITALS: BP 143/81
--- NOTE | 2021-08-10 14:06 | Electrocardiograph Report ---
[facility] Test Date: 2021-08-08 Test Time: 04:28:08 Pat Name: JUDY ORELLANA Department: Room: Gender: F [employer]: NURSE : 1990 Requested By: DARLENE FORREST Order Number: [id number] Reading MD: Luiza Mosquera Measurements Intervals [place] Rate: 97 P: 44 IA: 128 QRS: 38 QRSD: 84 T: 13 QT: 337 QTc: 428 Interpretive Statements Sinus rhythm Low voltage, precordial leads No previous ECG available for comparison Electronically Signed On 08-10-2021 14:05:47 EDT by Luiza Mosquera
== END 2021-08-08 09:35 | disposition home or self-care (01) ==
LOC: ED 03:48
DX: R07.9 Chest pain, unspecified (principal)
CPT/HCPCS: 36415; 71046; 71275; 80053; 83690; 84484; 84703; 85025; 85610; 93005; 96361; 96374; 99285; J1885; J7030; Q9967; Q0162